=== PATIENT | female | born 1995 | race Caucasian/White ===

== ENCOUNTER 2017-03-20 16:00 | Emergency (ER) | payer OTHER | END 2017-03-20 17:42 | disposition home or self-care (01) | LOC: ERS 16:00 | DX: B34.9 Viral infection, unspecified (principal) | CPT/HCPCS: 87081; 87430; 99283 ==

== ENCOUNTER 2017-03-21 12:39 | Emergency (ER) | payer OTHER | END 2017-03-21 14:00 | disposition home or self-care (01) | LOC: ERS 12:39 | DX: J01.90 Acute sinusitis, unspecified (principal); F41.9 Anxiety disorder, unspecified; F43.10 Post-traumatic stress disorder, unspecified | CPT/HCPCS: 99283 ==

== ENCOUNTER 2017-04-18 09:50 | Outpatient (CLI) | payer BC | END 2017-04-18 09:51 | disposition home or self-care (01) | LOC: LABBT 09:50 | PROVIDERS: ATTEND Surgery | DX: Z01.818 Encounter for other preprocedural examination (principal); K42.9 Umbilical hernia without obstruction or gangrene ==

== ENCOUNTER 2017-04-22 07:22 | Day surgery (SDC) | payer BC ==
[2017-04-18 10:06] VITALS: BMI 21.6
[2017-04-22] MEDS ORDERED: CEFAZOLIN/Water 2 GM/20 ML SYRINGE ONE (08:10)
[2017-04-22] MEDS ORDERED: Bupivacaine/Epinephrine 0.25% 30 ML VIAL ONE (09:52)
[2017-04-22] MEDS ORDERED: Fentanyl 250 MCG/5 ML VIAL ONE (10:07)
[2017-04-22] MEDS ORDERED: Propofol 200 MG/20 ML VIAL ONE (10:16)
[2017-04-22] MEDS ORDERED: Glycopyrrolate 0.2 MG/ML 5 ML SYRINGE ONE (10:16)
[2017-04-22] MEDS ORDERED: Lidocaine 1% PF 5 ML VIAL ONE (10:16)
[2017-04-22] MEDS ORDERED: Dexamethasone 20 MG/5 ML VIAL ONE (10:16)
[2017-04-22] MEDS ORDERED: Ondansetron HCl/PF 4 MG/2 ML Vial ONE (10:16)
[2017-04-22] MEDS ORDERED: Fentanyl 100 MCG/2 ML VIAL ONE ×2 (10:59→11:23)
--- NOTE | 2017-04-24 10:03 | OP ---
DATE OF PROCEDURE: 04/22/2017 PREOPERATIVE DIAGNOSIS: Umbilical hernia. POSTOPERATIVE DIAGNOSIS: Umbilical hernia. PROCEDURE: Umbilical hernia repair with mesh, Proceed ventral patch small. SURGEON: Hong Bethea M.D. ANESTHESIA: General. ESTIMATED BLOOD LOSS: Minimal. COMPLICATIONS: None. SPECIMEN: None. FINDINGS: Umbilical hernia. TECHNIQUE: The patient was taken to the operating room and placed supine on the table. After genera l anesthetic was obtained, the abdomen was shaved, prepped, and draped in a sterile fashion. Curved incision was made below the umbilicus. Cautery was used to dissect down to the base of the omental s talk. The omental stalk was amputated from the fascia exposing the umbilical defect. The edges of t he fascia were freshened. A Proceed ventral patch small was brought into the sterile field. The und erlay was placed through the fascial defect and pulled up flat against the posterior abdominal wall. The tails were sewn via U stitch of Nurolon to the edges of the fascia. The tails were then cut at the level of the fascia. The wound was irrigated. Local anesthetic was applied. The fascia was jessie sed loosely over the mesh using the Nurolon suture. The umbilical skin was tacked back down using 3- 0 Vicryl. The skin was irrigated and closed using 4-0 Monocryl and Dermabond. The patient was en ro [place] to recovery in stable condition. All instrument counts, needle counts, and lap counts were corre ct.
== END 2017-04-22 12:48 | disposition home or self-care (01) ==
LOC: SDC 07:22
PROVIDERS: ATTEND Surgery
PROC: 0WUF0JZ Supplement Abdominal Wall with Synthetic Substitute, Open Approach (ICD-10-PCS; principal; 2017-04-22)
DX: K42.9 Umbilical hernia without obstruction or gangrene (principal); F17.210 Nicotine dependence, cigarettes, uncomplicated; Z91.048 Other nonmedicinal substance allergy status; Z91.040 Latex allergy status; Z98.890 Other specified postprocedural states
CPT/HCPCS: 96374; C1781; J0131; J1100; J2001; J2405; J2704; J3010

== ENCOUNTER 2019-01-23 16:23 | Emergency (ER) | payer BC, SELFPAY ==
[2019-01-23 16:53] LABS: Bilirubin Negative (Negative); Blood, Urine 2+ (Negative); Clarity Clear (Clear); Glucose, Urine (Dipstick) Normal (Negative); Leukocyte 250 Leu/uL (Negative); Nitrite Negative (Negative); Protein, Urine (Dipstick) 50 mg/dL (Neg-Trace); RBC/HPF Greater than 50 HPF (0-3); Squamous Epithelial 0-3 HPF (0-3); Urobilinogen Normal mg/dL (Less than 2); WBC/HPF 21-50 HPF (0-3)
[2019-01-23 16:55] LABS: Bacteria/HPF 1+ HPF (None Seen)
[2019-01-23 16:56] LABS: Pregnancy Test - Urine (BHCG) Negative (Negative); Pregu Control Background? CLEAR/WHITE (CLR/WHITE); Pregu Control Bar Appear? YES (CONTROL BAR); Specific Gravity 1.013 (1.002-1.036)
[2019-01-23] MEDS ORDERED: Morphine 4 MG/ML VIAL ONE (16:56)
[2019-01-23] MEDS ORDERED: Ondansetron PF 4 MG/2 ML Vial ONE (16:57)
[2019-01-23 17:03] LABS: #Basophils 0.1 thou/uL (0.0-0.2); #Eosinphils 0.2 thou/uL (0.0-0.7); #Lymphocytes 2.5 thou/uL (1.20-3.40); #Monocytes 0.6 thou/uL (0.11-0.59); #Neutrophils 7.4 thou/uL (1.40-6.50); %Basophils 0.5 % (0.0-1.0); %Eosinophils 1.9 % (0.0-10.0); %Lymphocytes 23.5 % (21.0-51.0); %Monocytes 5.7 % (0.0-10.0); %Neutrophils 68.4 % (42.0-75.0); Hemoglobin 13.4 g/dL (12.0-16.0); Mean Corpuscular HGB CONC 34.1 g/dL (32.0-36.0); Mean Corpuscular Hemoglobin 31.1 pg (27.0-31.0); Mean Corpuscular Volume 91.3 fL (78.0-98.0); Mean Platelet Volume 9.8 fL (7.4-10.4); Platelet Count 177 thou/uL (130-400); RBC Distribution Width 11.8 % (11.5-14.5); Red Blood Cell (RBC) Count 4.32 mill/uL (4.20-5.40); White Blood Cell (WBC) Count 10.8 thou/uL (4.8-10.8)
[2019-01-23] MEDS ORDERED: cefTRIAXone\\ROCEPHIN 2 GM VIAL ONE (17:10)
[2019-01-23] MEDS ORDERED: Sodium Chloride 0.9% 100 ML ONE (17:10)
[2019-01-23 17:23] LABS: ALT (SGPT) 21 U/L (8-55); AST (SGOT) 19 U/L (5-34); Albumin 4.4 g/dL (3.5-5.0); Alkaline Phosphatase 56 U/L (40-150); Anion Gap 11 mmol/L (10-20); BUN (Urea Nitrogen) 9 mg/dL (7.0-18.7); Bilirubin, Total 0.3 mg/dL (0.2-1.2); Calc. Creatinine Clearance 0 mL/min (70-130); Calcium 9.2 mg/dL (7.8-10.44); Carbon Dioxide 23 mmol/L (22-29); Chloride 108 mmol/L (98-107); Estimated GFR-MDRD 90; Globulin 2.3 g/dL (2.4-3.5); Glucose 123 mg/dL (70-105); Potassium 3.9 mmol/L (3.5-5.1); Protein, Total 6.7 g/dL (6.0-8.3); Sodium 138 mmol/L (136-145)
== END 2019-01-23 18:20 | disposition home or self-care (01) ==
LOC: ERS 16:23
DX: N12 Tubulo-interstitial nephritis, not specified as acute or chronic (principal); F41.9 Anxiety disorder, unspecified; F43.10 Post-traumatic stress disorder, unspecified
CPT/HCPCS: 80053; 81003; 81015; 81025; 85025; 87077; 87086; 87186; 96365; 96375; J0696; J2270; J2405; J3490

== ENCOUNTER 2019-04-14 08:22 | Emergency (ER) | payer SELFPAY ==
--- NOTE | 2019-04-14 09:15 | RAD ---
RADIOGRAPH LEFT FOOT 3 VIEWS: Date: 04/14/19 HISTORY: 23-year-old female with left foot pain. Rule out stress fracture. FINDINGS: There is no fracture lucency. No periostitis, osteolytic lesion, osteoblastic lesion, or permeative l esion. Joint spaces are maintained without erosions or osteophytes. IMPRESSION: Normal. POS: [facility]
== END 2019-04-14 09:17 | disposition home or self-care (01) ==
LOC: ERS 08:22
DX: M79.672 Pain in left foot (principal)

== ENCOUNTER 2020-12-01 10:56 | Emergency (ER) | payer OTHER | END 2020-12-01 12:33 | disposition home or self-care (01) | LOC: ERS 10:56 | DX: J06.9 Acute upper respiratory infection, unspecified (principal); Z20.822 Contact with and (suspected) exposure to COVID-19 | CPT/HCPCS: 87633; 99283 ==

== ENCOUNTER 2022-03-24 01:16 | Emergency (ER) | payer OTHER ==
[2022-03-24 01:44] LABS: #Basophils 0.1 thou/uL (0.0-0.2); #Eosinphils 0.2 thou/uL (0.0-0.7); #Lymphocytes 3.1 thou/uL (1.20-3.40); #Monocytes 0.7 thou/uL (0.11-0.59); #Neutrophils 5.8 thou/uL (1.40-6.50); %Basophils 0.7 % (0.0-1.0); %Lymphocytes 31.8 % (21.0-51.0); %Monocytes 6.6 % (0.0-10.0); %Neutrophils 58.8 % (42.0-75.0); Hemoglobin 13.5 g/dL (12.0-16.0); Mean Corpuscular Hemoglobin 29.7 pg (27.0-31.0); Mean Corpuscular Volume 90.1 fL (78.0-98.0); Mean Platelet Volume 9.3 fL (7.4-10.4); Platelet Count 185 thou/uL (130-400); RBC Distribution Width 13.1 % (11.5-14.5); Red Blood Cell (RBC) Count 4.56 mill/uL (4.20-5.40); White Blood Cell (WBC) Count 9.8 thou/uL (4.8-10.8)
[2022-03-24 01:59] LABS: ALT (SGPT) 15 U/L (8-55); AST (SGOT) 17 U/L (5-34); Albumin 4.2 g/dL (3.5-5.0); Alkaline Phosphatase 40 U/L (40-110); Anion Gap 13 mmol/L (10-20); BUN (Urea Nitrogen) 12 mg/dL (7.0-18.7); Bilirubin, Total 0.4 mg/dL (0.2-1.2); Calc. Creatinine Clearance 0 mL/min (70-130); Calcium 9.1 mg/dL (7.8-10.44); Carbon Dioxide 22 mmol/L (22-29); Chloride 107 mmol/L (98-107); Estimated GFR 104; Globulin 2.6 g/dL (2.4-3.5); Glucose 80 mg/dL (70-105); Potassium 3.9 mmol/L (3.5-5.1); Protein, Total 6.8 g/dL (6.0-8.3); Sodium 138 mmol/L (136-145)
[2022-03-24 08:01] LABS: BHCG - Serum Negative (NEGATIVE); Pregs Control Background? CLEAR/WHITE (CLR/WHITE); Pregs Control Bar Appear? YES (CONTROL BAR)
[2022-03-24 08:12] LABS: Magnesium 1.8 mg/dL (1.6-2.6)
[2022-03-24] MEDS ORDERED: Aspirin Chewable 81 MG TAB ONE (08:21)
[2022-03-24] MEDS ORDERED: Nitroglycerin 0.4 MG TAB 1 EACH ONE ×2 (08:22→08:23)
== END 2022-03-24 09:13 | disposition home or self-care (01) ==
LOC: ERS 01:16
DX: R00.2 Palpitations (principal); R07.9 Chest pain, unspecified
CPT/HCPCS: 36415; 71045; 80053; 83735; 84443; 84484; 84703; 85025; 93005

== ENCOUNTER 2024-05-30 20:40 | Emergency (ER) | payer BC ==
[2024-05-30] MEDS ORDERED: Ondansetron PF 4 MG/2 ML Vial ONE (20:59)
[2024-05-30] MEDS ORDERED: Ketorolac Tromethamine 30 MG (1 mL) VIAL ONE (20:59)
[2024-05-30 21:26] LABS: #Basophils 0.08 10x3/uL (0.0-0.2); %Eosinophils 2.7 % (0.0-10.0); %Lymphocytes 34.2 % (21.0-51.0); %Monocytes 6.9 % (0.0-10.0); %Neutrophils 54.8 % (42.0-75.0); Hematocrit 39.3 % (36.0-47.0); Hemoglobin 13.5 g/dL (12.0-16.0); Mean Corpuscular HGB CONC 34.4 g/dL (32.0-36.0); Mean Corpuscular Hemoglobin 30.3 pg (27.0-31.0); Mean Corpuscular Volume 88.1 fL (78.0-98.0); Mean Platelet Volume 10.9 fL (7.4-10.4); Platelet Count 241 10x3/uL (130-400); RBC Distribution Width 12.7 % (11.5-14.5); Red Blood Cell (RBC) Count 4.46 mill/uL (4.20-5.40)
[2024-05-30 21:42] LABS: ALT (SGPT) 15 U/L (8-55); AST (SGOT) 14 U/L (5-34); Albumin 3.8 g/dL (3.5-5.0); Alkaline Phosphatase 45 U/L (40-110); Anion Gap 12 mmol/L (10-20); BUN (Urea Nitrogen) 6 mg/dL (7.0-18.7); Bilirubin, Total 0.3 mg/dL (0.2-1.2); Calc. Creatinine Clearance 0 mL/min (70-130); Calcium 8.7 mg/dL (7.8-10.44); Carbon Dioxide 23 mmol/L (22-29); Chloride 107 mmol/L (98-107); Estimated GFR 121; Globulin 2.7 g/dL (2.4-3.5); Glucose 82 mg/dL (70-105); Lipase 14 U/L (8-78); Protein, Total 6.5 g/dL (6.0-8.3); Sodium 139 mmol/L (136-145)
[2024-05-30] MEDS ORDERED: Potassium Chloride 20 MEQ TAB ONE (22:24)
== END 2024-05-30 22:38 | disposition home or self-care (01) ==
LOC: ERS 20:40
DX: R07.9 Chest pain, unspecified (principal); F17.210 Nicotine dependence, cigarettes, uncomplicated
CPT/HCPCS: 80053; 83605; 83690; 85025; 85379; 93005; 96361; 96374; 96375; J1885; J2405

== ENCOUNTER 2025-03-10 15:20 | Emergency (ER) | payer BC, SELFPAY ==
[2025-03-10] MEDS ORDERED: HYDROcodone/Acetaminophen 5/325 mg Tablet ONE (16:27)
== END 2025-03-10 16:32 | disposition home or self-care (01) ==
LOC: ERS 15:20
DX: K08.89 Other specified disorders of teeth and supporting structures (principal); F17.210 Nicotine dependence, cigarettes, uncomplicated
CPT/HCPCS: 99282

== ENCOUNTER 2025-05-06 20:12 | Emergency (ER) | payer SELFPAY ==
[2025-05-06 20:46] LABS: #Basophils 0.06 10x3/uL (0.0-0.2); #Eosinophils 0.30 10x3/uL (0.0-0.7); #Monocytes 0.71 10x3/uL (0.11-0.59); #Neutrophils 4.88 10x3/uL (1.40-6.50); %Basophils 0.6 % (0.0-1.0); %Eosinophils 3.2 % (0.0-10.0); %Lymphocytes 37.2 % (21.0-51.0); %Monocytes 7.5 % (0.0-10.0); %Neutrophils 51.3 % (42.0-75.0); Hematocrit 42.6 % (36.0-47.0); Hemoglobin 14.7 g/dL (12.0-16.0); Mean Corpuscular Hemoglobin 29.9 pg (27.0-31.0); Mean Corpuscular Volume 86.8 fL (78.0-98.0); Platelet Count 211 10x3/uL (130-400); Red Blood Cell (RBC) Count 4.91 mill/uL (4.20-5.40); White Blood Cell (WBC) Count 9.51 10x3/uL (4.8-10.8)
[2025-05-06 21:02] LABS: ALT (SGPT) 22 U/L (Less than 34); AST (SGOT) 21 U/L (11-34); Albumin 4.4 g/dL (3.1-4.5); Alkaline Phosphatase 51 U/L (40-110); Anion Gap 14 mmol/L (10-20); BUN (Urea Nitrogen) 12 mg/dL (7.0-18.7); Bilirubin, Total 0.4 mg/dL (0.3-1.2); Calc. Creatinine Clearance 0 mL/min (70-130); Calcium 9.0 mg/dL (7.8-10.44); Carbon Dioxide 23 mmol/L (22-29); Chloride 108 mmol/L (98-107); Globulin 2.5 g/dL (2.4-3.5); Glucose 105 mg/dL (70-105); Potassium 3.8 mmol/L (3.5-5.1); Sodium 141 mmol/L (136-145)
== END 2025-05-06 23:20 | disposition home or self-care (01) ==
LOC: ERS 20:12
DX: R00.2 Palpitations (principal); F17.210 Nicotine dependence, cigarettes, uncomplicated; Z55.6 Problems related to health literacy
CPT/HCPCS: 71045; 80053; 84443; 84484; 85025; 93005

== ENCOUNTER 2025-05-21 11:27 | Emergency (ER) | payer BC, SELFPAY ==
[2025-05-21 11:52] LABS: #Basophils 0.06 10x3/uL (0.0-0.2); #Eosinophils 0.22 10x3/uL (0.0-0.7); #Monocytes 0.63 10x3/uL (0.11-0.59); #Neutrophils 5.92 10x3/uL (1.40-6.50); %Basophils 0.7 % (0.0-1.0); %Eosinophils 2.4 % (0.0-10.0); %Lymphocytes 24.9 % (21.0-51.0); %Monocytes 6.9 % (0.0-10.0); %Neutrophils 64.8 % (42.0-75.0); Hematocrit 45.5 % (36.0-47.0); Hemoglobin 15.5 g/dL (12.0-16.0); Mean Corpuscular Hemoglobin 29.9 pg (27.0-31.0); Mean Corpuscular Volume 87.7 fL (78.0-98.0); Platelet Count 184 10x3/uL (130-400); Red Blood Cell (RBC) Count 5.19 mill/uL (4.20-5.40); White Blood Cell (WBC) Count 9.14 10x3/uL (4.8-10.8)
[2025-05-21 12:21] LABS: ALT (SGPT) 28 U/L (Less than 34); AST (SGOT) 25 U/L (11-34); Albumin 4.6 g/dL (3.1-4.5); Alkaline Phosphatase 43 U/L (40-110); Anion Gap 16 mmol/L (10-20); BUN (Urea Nitrogen) 7 mg/dL (7.0-18.7); Bilirubin, Total 0.9 mg/dL (0.3-1.2); Calc. Creatinine Clearance 0 mL/min (70-130); Calcium 9.3 mg/dL (7.8-10.44); Carbon Dioxide 23 mmol/L (22-29); Chloride 106 mmol/L (98-107); Globulin 2.7 g/dL (2.4-3.5); Glucose 84 mg/dL (70-105); Potassium 3.6 mmol/L (3.5-5.1); Sodium 141 mmol/L (136-145)
[2025-05-21] MEDS ORDERED: diphenhydrAMINE 50 MG/ML VIAL ONE (12:42)
[2025-05-21] MEDS ORDERED: Metoclopramide HCl 10 MG (2 mL) VIAL ONE (12:42)
[2025-05-21 12:56] LABS: Bacteria/HPF None Seen HPF (None Seen); CAUTI Indications for Culture Dysuria,urgency,freq; Glucose, Urine (Dipstick) Normal (Negative); Leukocyte Negative Leu/uL (Negative); Protein, Urine (Dipstick) Negative (Neg-Trace); RBC/HPF 0-3 HPF (0-3); Specific Gravity, Urine 1.006 (1.002-1.036); WBC/HPF 0-3 HPF (0-3)
[2025-05-21 13:06] LABS: Urine Culture Reflex No No
== END 2025-05-21 15:54 | disposition home or self-care (01) ==
LOC: ERS 11:27
DX: R51.9 Headache, unspecified (principal); I10 Essential (primary) hypertension; M79.10 Myalgia, unspecified site; R29.700 NIHSS score 0; F17.210 Nicotine dependence, cigarettes, uncomplicated
CPT/HCPCS: 71045; 80053; 81001; 84484; 85025; 93005; 96365; 96366; 96375; J1200; J2765; J2919